=== PATIENT | male | born 1980 | race African-American/Black ===

== ENCOUNTER 2018-05-24 01:00 | Outpatient (CLI) | payer MEDICAID, SELFPAY ==
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
== END 2018-05-24 01:20 ==
PROVIDERS: PCP Family Medicine; Visit Provider Student in an Organized Health Care Education/Training Program
DX: M23.92 Unspecified internal derangement of left knee (principal); M71.22 Synovial cyst of popliteal space [Baker], left knee; S83.512A Sprain of anterior cruciate ligament of left knee, initial encounter
CPT/HCPCS: 73721

== ENCOUNTER 2018-05-25 17:12 | Emergency (ER) | payer MEDICAID, SELFPAY ==
[2018-05-25 17:42] VITALS: BP 138/83; PULSE 70; RESP 16; TEMP 36.7; O2SAT 95
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
[2018-05-25 19:41] VITALS: BP 130/73; PULSE 89; RESP 16; O2SAT 96
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
== END 2018-05-25 19:52 | disposition home or self-care (01) ==
PROVIDERS: Emergency Provider Student in an Organized Health Care Education/Training Program; PCP Family Medicine
DX: S01.111A Laceration without foreign body of right eyelid and periocular area, initial encounter (principal); S06.0X0A Concussion without loss of consciousness, initial encounter; Y04.0XXA Assault by unarmed brawl or fight, initial encounter
CPT/HCPCS: 12013; 90471; 99284; 70450; 70490; 99281; L0172

== ENCOUNTER 2018-05-28 07:12 | PSDC | payer MEDICAID, SELFPAY ==
[2018-05-28] VITALS (8 sets, daily range): BP systolic 81–126; BP diastolic 35–75; PULSE 70–90; RESP 16–20; TEMP 36.3–36.8; O2SAT 95–100
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
[2018-05-28] MEDS: Lactated Ringers 1,000 ML 80 ML IV (07:54)
[2018-05-28] MEDS: oxyCODONE-CR 10 MG TABCR PO (08:28)
[2018-05-28] MEDS: Acetaminophen 500 MG TAB 1000 MG PO (08:28)
[2018-05-28] MEDS: Celecoxib 200 MG CAP 400 MG PO (08:28)
[2018-05-28] MEDS: Gabapentin 300 MG CAP PO (08:28)
[2018-05-28] MEDS: Bupivacaine 0.5% Pres-Free 30 ML VIAL (09:55)
--- NOTE | 2018-05-29 07:08 | ROE_ITS ---
Date of service: 05/28/18 Time of Service: 09:05 Operative Note Date of procedure: 05/28/18 Pre-op diagnosis: Left Knee Medial Meniscus Tear and Loose Body Post-op diagnosis: same Procedure: Left Knee Arthroscopic Partial Medial Menisectomy with Removal of Loose Body Surgeon: Elton Nuñez Anesthesia: KAR Estimated blood loss (mL): 0 Pathology: none sent Complications: None Patient was transported to: PACU Patient's condition: stable Indications: I have seen Perez in clinic for symptoms of a meniscus tear and a loose body. He previously underwent meniscal repair and suffered a recurrent injury. This was confirmed based on MRI and exam findings. Nonoperative measures were exhausted but disability and pain persisted. I discussed knee arthroscopy with meniscal intervention with the patient. I reviewed the risks of the procedure to include, but not limited to, bleeding, infection, pain, stiffness, damage to nerves or vessels, recurrence, blood clot. Despite these risks, the patient elected to proceed. Findings: A diagnostic arthroscopy was performed with the following findings: Suprapatellar Pouch: Mild inflammation, No loose bodies Medial Compartment: Complex medial meniscal tear extending from the most lateral suture and towards the root with two horizontal components, Intact meniscal root, No significant chondromalacia or signs of arthritis, No loose bodies Notch: PCL was intact, ACL was mostly torn except for a small component still attached to the femur Lateral Compartment: No meniscal tear but dimunitive meniscus from prior partial menisectomy, Intact meniscal root, No significant chondromalacia or signs of arthritis, No loose bodies Patellofemoral Compartment: No significant chondromalacia, No apparent patellar maltracking Procedure Description: Perez was greeted in the preoperative holding area where the correct side was identified and marked. The consent was reviewed with the patient and signed. The history and physical was updated. All questions were answered. Perez was taken back to the operating room. The patient was placed into the supine position on the operating room table. A nonsterile tourniquet was placed high onto the leg but not used. All bony prominences were well padded. Prophylactic antibiotics in the form of [Cefazolin] were administered. The left leg was then prepped with Chloraprep and draped in a standard fashion with stockinette and extremity drape. A timeout to confirm correct identity, side and site, procedure, allergies, anesthesia, and medical concerns was performed. The leg was placed into a pneumatic leg cuellar, SPIDER2. A standard lateral portal was made at the lateral border of the patella tendon in line with the inferior pole of the patella, soft spot. The skin and deep tissue was incised sharply and the blunt trochar was inserted atraumatically. A diagnostic arthroscopy was performed and the findings are listed above. The suprapatellar pouch had no significant inflammatory change. The patellofemoral articulation showed no articular damage as well as good tracking. The lateral gutter had no loose bodies and the medial gutter had no loose bodies. The knee was brought into some valgus stress in extension to open the medial compartment. A medial portal was made, localized by a spinal needle. The portal was created with an # 11 blade through skin and capsule under direct visualization avoiding any meniscal injury. A probe was then inserted into the medial compartment. The medial compartment was fully inspected. There was a suture seen floating in the medial aspect of the knee above the meniscus. The chondral surface of the tibia showed mild chondromalacia and the surface of the femur showed no significant chondromalacia. The medial meniscus had a complex tear. The tear at the most medial suture appeared healed but starting where the loose suture was there was a complex tear etending toward the root with 2 horizontal components. The remnant and loose suture material was removed with a biter. After evaluation, the meniscus was debrided down to a stable base using a series of biters and arthroscopic dallin. It was probed afterwards to confirm that the tear had been removed and the meniscus was stable. The notch was then inspected which showed a mostly torn ACL and an intact PCL. The leg was then brought into a figure of 4 position. The lateral compartment was fully inspected with the arthroscope and a probe. The chondral surface of the lateral femur showed no significant chondromalacia. The chondral surface of the lateral tibia showed no significant chondromalacia. The lateral meniscus had signs of the previous meniscal resection but no new tear. The arthroscope was brought back into the suprapatellar pouch and the leg was in full extension. The knee was thoroughly irrigated with the arthroscopic fluid on high flow and pressure. Inflow was stopped and excess fluid was removed. The wounds were closed with 4-0 Nylon. They were dressed with Xeroform, 4x4 gauze, ABD pad, Kerlix and an DENIS wrap. A cryo-cuff was applied. The patient tolerated the procedure well and was returned to the Same Day Surgery area in a stable condition suffering no known complication.
== END 2018-05-28 12:08 | disposition home or self-care (01) ==
PROVIDERS: PCP Family Medicine; Visit Provider Student in an Organized Health Care Education/Training Program
PROC: (CPT 29870; principal; 2018-05-28 08:30)
DX: S83.232A Complex tear of medial meniscus, current injury, left knee, initial encounter (principal); M23.42 Loose body in knee, left knee; M94.262 Chondromalacia, left knee; S83.512A Sprain of anterior cruciate ligament of left knee, initial encounter; X58.XXXA Exposure to other specified factors, initial encounter; Z98.890 Other specified postprocedural states
CPT/HCPCS: 29881; E0114; J0690; J1100; J1885; J2405

== ENCOUNTER 2018-08-19 00:39 | Outpatient (CLI) | payer MEDICAID, SELFPAY ==
--- NOTE | 2018-08-19 10:06 | DI.MRI_ITS ---
SYMPTOM/DIAGNOSIS: NEW INJURY WITH HEMARTHROSIS, LT ACL TEAR, S83.512A, RECENT INJURY, KNEE GIVES OUT LEFT KNEE MRI: Routine noncontrast examination was performed. Comparison is made with 05/24/18. There is again seen abnormal signal in the posterior horn of the medial meniscus. This may be post surgical but an acute tear cannot be excluded. The lateral meniscus is intact. The posterior cruciate ligament is visualized. The anterior cruciate ligament is not visualized suggestive of a tear. The medial and lateral collateral ligaments, extensor mechanism and medial and lateral retinaculum are intact as is the popliteus tendon. There is abnormal signal seen in the articular cartilage overlying the medial patellar facet. There also appears to be some thinning of the articular cartilage in the lateral femoral tibial joint space overlying the lateral femoral condyle. Mild marrow edema is seen in the subchondral bone in the lateral femoral condyle. No occult fracture is identified. No findings to definitely suggest avascular necrosis are appreciated. The appearance of the lateral femoral condyle appears new compared to 05/24/18. There is a moderate amount of fluid in the joint space. There is a small popliteal cyst. The soft tissues are otherwise unremarkable. IMPRESSION: 1. Abnormal signal seen in the posterior horn of the medial meniscus. This may be post surgical but a meniscal tear cannot be excluded. 2. Again non visualization of a portion of the anterior cruciate ligament suspicious for a tear. 3. Findings suspicious for osteochondral injury involving the lateral femoral condyle. 4. Moderate joint effusion and small popliteal cyst.
== END 2018-08-19 00:59 ==
PROVIDERS: PCP Family Medicine; Visit Provider Student in an Organized Health Care Education/Training Program
DX: M25.562 Pain in left knee (principal); M25.462 Effusion, left knee; M71.22 Synovial cyst of popliteal space [Baker], left knee; M25.362 Other instability, left knee; R93.89 Abnormal findings on diagnostic imaging of other specified body structures
CPT/HCPCS: 73721

== ENCOUNTER 2018-08-22 08:58 | Day surgery (SDC) | payer MEDICAID, SELFPAY ==
[2018-08-22] VITALS (8 sets, daily range): BP systolic 98–145; BP diastolic 48–97; PULSE 58–70; RESP 14–20; TEMP 36.6–37.4; O2SAT 93–100
--- NOTE | 2018-08-22 07:16 | PDOC.DSDIS_ITS ---
Discharge Plan Disposition Patient Disposition: HOME Condition: Good Discharge Details Reason For Visit: Left ACL Tear Attending Provider: Elton Nuñez Primary Care Provider: Maximino Tate Home Meds and New Rx's Prescriptions: New acetaminophen 500 mg capsule 1,000 mg PO Q8H PRN (Reason: pain) Qty: 90 RF: 0 oxycodone 5 mg tablet 5 - 10 mg PO Q4H Qty: 24 RF: 0 aspirin [Aspir-81] 81 mg tablet,delayed release (DR/EC) 81 mg PO DAILY Qty: 14 RF: 0 Continue methylphenidate HCl [Ritalin] 20 MG tablet 20 mg PO TID RF: 0 ibuprofen 800 MG tablet 800 mg PO Q8H PRN PRNQty: 60 RF: 3 gabapentin 300 mg capsule 300 mg PO TID Qty: 90 RF: 0 Discontinued diazepam 5 mg tablet 5 mg PO HS Qty: 14 RF: 0 acetaminophen [Mapap Extra Strength] 500 MG tablet 500 mg PO Q6H PRN PRNQty: 60 RF: 2 hydrocodone-acetaminophen 7.5-325 mg Tablet 1 tab PO Q4H PRN PRNRF: 0 Discharge Instructions Instructions: Crutch Instructions (GEN) Additional Instructions: Activity: You may bear weight as tolerated on the leg as long as the brace is on and locked and you are using crutches for support. You should keep the brace on and locked at all times until your follow-up. You should use crutches to support the knee. You may move your ankle and toes as needed. Dressing: You should keep the knee dressing in place until your follow-up appointment. If it becomes soiled or it unravels,you may rewrap or overwrap until the follow-up. It may also be changed after 72 hours and covered with light gauze. Medications: - You should take Tylenol and Ibuprofen around the clock for the first days- weeks. This will cover baseline pain control. - You have been prescribed a stronger medication, Oxycodone, if needed. You should try to minimize the use of this as it can cause addiction and other secondary side effects. If this is necessary, and you need a refill, please call Dr. Nuñez's office or page him through the hospital. Follow-up: Sunday, 08/28 Stand Alone Forms: DSU Post op Instructions, Press Brandi (DSU) Equipment/Supplies: Partial Weight Bearing Crutches Activity:: Elevate Remove Dressings/Wound Care:: 72 hours Shower/Bathe:: 72 hours Diet:: As Tolerated Discharge Orders Discharge Orders: Discharge Order (Routine); Ordered 08/22/18 Ordered By: Elton Nuñez DS: Diagnosis Discharge Diagnosis (1) Left ACL tear: Status: Acute
[2018-08-22] MEDS: Celecoxib 200 MG CAP 400 MG PO (09:32)
[2018-08-22] MEDS: Gabapentin 300 MG CAP PO (09:32)
[2018-08-22] MEDS: Lactated Ringers 1,000 ML 80 ML IV ×2 (09:33→12:37)
[2018-08-22] MEDS: oxyCODONE-CR 10 MG TABCR PO (09:33)
[2018-08-22] MEDS: Acetaminophen 500 MG TAB 1000 MG PO (09:33)
--- NOTE | 2018-08-22 10:29 | DI.RAD_ITS ---
SYMPTOM/DIAGNOSIS: LT ACL TEAR LEFT KNEE: Imaging was provided for Dr. Nuñez in the OR. Please see procedure note for details.
[2018-08-22] MEDS: Bupivacaine 0.5% Pres-Free 30 ML VIAL (13:57)
[2018-08-22] MEDS: Bupivacaine LIPOSOME/PF 133 MG/10 ML VIAL IJ ×2 (13:57→16:41)
--- NOTE | 2018-08-23 08:47 | ROE_ITS ---
REPORT OF OPERATIVE PROCEDURE DATE OF SURGERY August 22, 2018 PREOPERATIVE DIAGNOSIS Left ACL tear. POSTOPERATIVE DIAGNOSES Left ACL tear and left medial meniscal root tear. SURGERY Left ACL reconstruction with Allograft, left meniscal root repair. SURGEON Elton Nuñez M.D. [employer] SINAN Mccormick PA-C ESTIMATED BLOOD LOSS 50 cc ANESTHESIA General. Adductor nerve block. FINDINGS There was a completely torn ACL. There were some inflammatory changes seen within the knee. There was some grade II chondromalacia over the distal femur on the medial compartment and some grade I and II changes over the lateral compartment. The medial meniscus was inspected and the previous repair of a peripheral vertical tear was seen with the suture still intact and the repair was intact. There was also an area where one of the previous repair sutures had pulled out and this was debrided down, and this also appeared to be nice and smooth without recurrent tearing. Upon further inspection and probi ng of the meniscus, it was seen that the root was completely detached and torn. It was a radial-type tear just off of the root attachment. This was repaired through the tibia. COMPLICATIONS None. DISPOSITION The patient was awakened from anesthesia and taken to the PACU in a stable condition. INDICATION FOR PROCEDURE Perez is a 38-year old who has had multiple injuries to his left knee. He was diagnosed with a bucket- handle tear, a medial meniscal tear as well. This was treated with meniscal repair and a partial meni scectomy. It was at that time that he was noticed to have a fairly deficient ACL. He then has had at least two other recurrences of traumatic incidents with hemarthrosis. Further MRI showed ACL tear and possible concern of medial meniscal tear although thought to be artifact. He had significant instab ility on a daily basis. He was unable to work due to this instability. He had pain as well. After dis cussion of possible treatment options, I did offer ACL reconstruction. I reviewed the risks to includ e bleeding, infection, pain, stiffness, damage to nerves and vessels, damage to muscle and tendons, c ontinued instability, worsening arthritis, blood clot. Despite these risks, he elected to proceed. PROCEDURE DESCRIPTION Perez was greeted in the preoperative holding area. His identity was confirmed and the correct side w as identified and marked. The consent was reviewed with the patient and signed. He was then taken back to the PACU where an adductor nerve block was administered. He was then mane t to the Operating Room. He was kept in the supine position and a general anesthetic was administered . All bony prominences were padded. A nonsterile tourniquet was placed high on the left thigh, althou gh it was not used. The left leg was prepped with ChloraPrep and draped in a standard fashion. Prophy lactic antibiotics in the form of Cefazolin were given. A time-out was performed for safe surgery. On the back table while the patient was being readied, The Allograft was prepared. This was a peroneu s longus Allograft. It was tubularized, and each end was fixed with #2-0 FiberLoop suture. It was thr ough the Rigidloop Adjustable device and kept on 10 pounds of traction. It was also kept soaked in va ncomycin saline. There was enough tendon length to triple, but not necessarily, quadruple the graft a nd therefore, it was only doubled over giving a 9-mm diameter. A diagnostic arthroscopy was then performed. A standard lateral portal was made. The scope was insert ed bluntly into the knee. I immediately had visualization of the suprapatellar pouch. This showed salbador e mild inflammatory change with no loose bodies. The patellofemoral articulation was without signific ant defect. The medial gutter did show a few chondral loose bodies. The lateral gutter had no loose b odies. The scope was then placed in the medial compartment. The knee was placed in some valgus stress . A medial portal was then established with spinal needle localization. Previous area of meniscal rep air was seen. The suture was seen in the periphery of the meniscus and looked to be well healed. The other area of partial meniscectomy also appeared to be nice and smooth without recurrent tear. On fur ther inspection of the medial compartment, there was some grade I/II changes seen of the distal femur . On the posterior aspect of the medial tibia, there were grade I changes. The medial meniscus was fu lly probed and the scope was taken through the notch to inspect the meniscal root, which showed to gomez ve a radial tear just medial to its insertion onto the tibia. A shaver was then used to debride down the meniscal stump. The footprint of the meniscal root was identified. I then proceeded with meniscal root repair. I first prepared the insertion site for the meniscal root with a rasp. I removed the cartilage from t his area until there was bleeding bone exposed. Using the ACL targeting device, I placed a 2.4-mm pin through the proximal, medial tibia and through this projected spot over the posterior edge of the ti gamal. This was kept in place. A passing suture was brought through from the tibia into the knee. Two s utures using the NovoStitch device were then placed within the free edge of the medial meniscus. Thes e were done in a basket-type stitch to be brought through the hole in the tibia. Passing suture was t hen loaded with these four suture limbs and brought through the tibia. With traction on these sutures it anatomically reduced the meniscal root onto the tibia and allowed no further excursion of the tib ia. These were left in place to be tied at the end of the case. We then proceeded with the ACL portion of the case. The scope was inserted into the medial portal for better viewing of the lateral wall of the femur. It was debrided of any soft tissue attachments. The Resident's ridge was identified. Anatomy showed approximately 23 mm of depth of the wall of the late ral femoral notch. The stump of the ACL ligament was debrided down, but left intact on the tibia for reference point. Using the tibial targeting device, at an angle of 55 degrees I then placed a pin thr ough the tibia and into the tibial insertion of the ACL. This exited directly through the mid portion of the ACL in line with the posterior border lateral meniscus between the two ridges of the notch. A 9-mm reamer was then used to ream the tibial tunnel. The tibial tunnel was then debrided with a cure tte and shaver. The scope was then kept in the medial portal and a femoral targeting device was then placed over the lateral notch. This was placed again about 40 percent from the posterior boarder of t he notch in a 90-degree position. Once this was in a secure position, and exiting just lateral and an terior to the lateral epicondyle. The targeting device was placed on the skin. The skin was incised a nd placed all the way down to bone. This measured a total tunnel length of about 40 millimeters. Usin g the TWISTR, this was driven into the knee and exited at the desired location of the ACL tunnel. The tunnel was created with a 9-mm diameter. The length of the tunnel was approximately 25 to 30 millime ters. The tunnel was cleaned and the TWISTR device was removed with a passing suture placed through t he tunnel. This was brought through the tibia. The graft, which was on the back table, was then broug ht over to the main table and the suture limbs from the Rigidloop Adjustable was placed through the t ibia, knee, and out the femur. Using a pulling suture, I then brought the Endobutton device into the knee and then at the correct length, flipped the button onto the lateral femur. Fluoroscopy was used to confirm that it was seated appropriately onto the lateral femur. With traction being held, I then tightened this up docking the tendon into the femoral tunnel. I brought the tendon in at least 20 mil limeters, leaving some room for later adjustment. The knee was then cycled multiple times while hold ing traction on the tibial strands of the graft. The knee was then brought into about 30 degrees of f lexion and the suture limbs from the Allograft were placed around the tension device. The space betwe en ligament limbs were dilated and a soft tissue sheath was placed. A Bio-Tenodesis Screw was then in serted with excellent fixation. Excess tendon was removed. Excess sheath was also removed, making syed e the screw and sheath were flush with the tibial surface. The knee was once again cycled. Kaylene an d anterior drawer showed very minimal excursion. Any slack was taken out of the slip knot from the Ri gidloop Adjustable. The scope was inserted back into the knee, which showed appropriate positioning o f the ACL graft with no impingement on the PCL or on the anterior notch. It was well positioned. The meniscal root was then further inspected and traction was placed on the sutures. This showed again ap propriate reduction of the meniscal root. I then placed a knotless Mitek Healix anchor on the tibia just distal to the exiting site of the sutu re limbs for the meniscal root. These were tightened and evaluated arthroscopically while they were b eing tightened and this was inserted into the tibia with excellent purchase into the bone. It had obie quately reduced the meniscal root and it was unable to be mobile with the probe. Excess sutures were then cut. The wounds were irrigated. Excess fluid was removed from the knee. The deep fascia over the medial tibia was reapproximated with a #0-Vicryl. The skin was closed with #2-0 Vicryl, followed by #4-0 Monocryl. He was placed into a knee immobilizer locked in extension. A Cryo/Cuff was applied. At the end of the case, all counts were correct.
== END 2018-08-22 16:40 | disposition home or self-care (01) ==
PROVIDERS: PCP Family Medicine; Visit Provider Student in an Organized Health Care Education/Training Program
PROC: (CPT 29888; principal; 2018-08-22 10:45)
DX: S83.512A Sprain of anterior cruciate ligament of left knee, initial encounter (principal); S83.242A Other tear of medial meniscus, current injury, left knee, initial encounter; M23.52 Chronic instability of knee, left knee; X50.0XXA Overexertion from strenuous movement or load, initial encounter; G89.18 Other acute postprocedural pain; M94.262 Chondromalacia, left knee; M23.42 Loose body in knee, left knee
CPT/HCPCS: 29882; 29888; C1713; 76942; 73560; J0131; J0690; J1100; J1885; J2250; J2405; J3010; L1833; L8699

== ENCOUNTER 2018-09-18 13:41 | Outpatient (CLI) | payer MEDICAID, SELFPAY ==
--- NOTE | 2018-09-18 13:38 | DI.RAD_ITS ---
SYMPTOMS/DIAGNOSIS: F/U LEFT ACL RECONSTRUCTION, MENISCUS, S/P FALL LEFT KNEE: Comparison is made with December,. The patient is status post ACL repair. The joint spaces are well maintained. No abnormal bony lucencies are seen.
== END 2018-09-18 14:01 ==
PROVIDERS: PCP Family Medicine; Visit Provider Student in an Organized Health Care Education/Training Program
DX: S83.512D Sprain of anterior cruciate ligament of left knee, subsequent encounter (principal); S83.242D Other tear of medial meniscus, current injury, left knee, subsequent encounter; Z98.890 Other specified postprocedural states
CPT/HCPCS: 73560

== ENCOUNTER 2018-11-11 14:06 | Outpatient (CLI) | payer MEDICAID, SELFPAY ==
--- NOTE | 2018-11-11 14:03 | DI.RAD_ITS ---
SYMPTOM/DIAGNOSIS: F/U LT ACL RECONSTRUCTION LEFT KNEE: Comparison is made with 09/18/18. The patient is again noted to be status post ACL repair. The joint spaces are well maintained. No joint effusion is identified.
== END 2018-11-11 14:26 ==
PROVIDERS: PCP Family Medicine; Visit Provider Student in an Organized Health Care Education/Training Program
DX: S83.252D Bucket-handle tear of lateral meniscus, current injury, left knee, subsequent encounter (principal); S83.242D Other tear of medial meniscus, current injury, left knee, subsequent encounter; S83.512D Sprain of anterior cruciate ligament of left knee, subsequent encounter; M23.92 Unspecified internal derangement of left knee
CPT/HCPCS: 73560